=== PATIENT | male | born 1955 | race Caucasian/White ===

== ENCOUNTER 2024-06-21 14:21 | Inpatient (IN) | payer OTHER ==
[2024-06-21] MEDS ORDERED: NICOTINE 14 MG/24 HOURS TOPICAL PATCH TD ONE (14:54)
[2024-06-21] MEDS: NICOTINE 14 MG/24 HOURS TOPICAL PATCH TD STA (15:06)
[2024-06-21 15:12] VITALS: BMI 23.2
[2024-06-21] MEDS ORDERED: ACETAMINOPHEN 325 MG TABLET (FP) PO PRN (15:25)
[2024-06-21] MEDS ORDERED: LORazepam 1 MG TABLET PO PRN (15:25)
[2024-06-21] MEDS ORDERED: MAGNESIUM HYDROX 2400MG/30ML ORAL SUSPENSION 30 ML CUP PO PRN (15:25)
[2024-06-21] MEDS ORDERED: BENZONATATE 200 MG CAPSULE PO PRN (15:25)
[2024-06-21] MEDS ORDERED: LOPERAMIDE HCL 2 MG CAPSULE PO PRN (15:25)
[2024-06-21] MEDS ORDERED: ONDANSETRON *ODT* 4 MG TABLET SL PRN (15:25)
[2024-06-21] MEDS ORDERED: DICYCLOMINE HCL 10 MG CAPSULE PO PRN (15:25)
[2024-06-21] MEDS ORDERED: IBUPROFEN 600 MG TABLET (FP) PO PRN (15:25)
[2024-06-21] MEDS ORDERED: BENZOCAINE/MENTHOL (CHLORASEPTIC ) LOZENGE MM PRN (15:25)
[2024-06-21] MEDS ORDERED: LORazepam 2 MG/ML SDV VIAL ONE (15:25)
[2024-06-21] MEDS ORDERED: IBUPROFEN 400 MG TABLET (FP) PO PRN (15:25)
[2024-06-21] MEDS ORDERED: NALOXONE (NARCAN) HCL 4 MG/0.1 ML SPRAY NS PRN (15:25)
[2024-06-21] MEDS ORDERED: METHOCARBAMOL 500 MG TABLET PO PRN (15:25)
[2024-06-21] MEDS ORDERED: guaiFENesin 600 MG TABLET.ER (FP) PO PRN (15:25)
[2024-06-21] MEDS ORDERED: POLYETHYLENE GLYCOL (HEALTHYLAX) 3350 17 GM PACKET PO PRN (15:25)
[2024-06-21] MEDS ORDERED: BISMUTH SUBSALICYLATE 524 MG/30 ML PO PRN (15:25)
[2024-06-21] MEDS ORDERED: MAG HYDROX/AL HYDROX/SIMETH 30 ML UNIT-DOSE CUP PO PRN (15:25)
[2024-06-21] MEDS: LORazepam 2 MG/ML SDV VIAL IM ONE (15:32)
[2024-06-21] MEDS: PRENATAL VITAMINS W/ FOLIC ACID TABLET (FP) PO SCH (17:05)
[2024-06-21] MEDS: THIAMINE 100 MG TABLET PO SCH (22:15)
[2024-06-21] MEDS: LORazepam 2 MG TABLET PO SCH (22:15)
[2024-06-21] MEDS: MELATONIN 5 MG TABLETS PO SCH (22:16)
[2024-06-22] MEDS: hydrOXYzine PAMOATE 25 MG CAPSULE (FP) PO PRN (06:33)
[2024-06-22] MEDS ORDERED: NICOTINE 14 MG/24 HOURS TOPICAL PATCH TD SCH (10:00)
[2024-06-22] MEDS: NICOTINE 14 MG/24 HOURS TOPICAL PATCH TD SCH (10:17)
[2024-06-22] MEDS: PNEUMOC 20-VAL CONJ-DIP CRM/PF 0.5 ML SYRINGE IM ONE (12:08)
[2024-06-22 13:51] LABS: HEMATOCRIT 39.9 % (35.4-49); HEMOGLOBIN 13.7 GM/dL (11.7-16.9); MCH 31.6 pg (25.7-33.7); MCHC 34.3 g/dl (32.0-35.9); MEAN CELL VOLUME 92.1 fl (80-96); MEAN PLT VOLUME 7.3 fl (7.5-11.1); PLATELET COUNT 118 10^3/uL (134-434); RBC 4.34 M/mm3 (4.00-5.60); RDW 14.2 % (11.9-15.9); WHITE BLOOD COUNT 5.9 K/mm3 (4.0-10.0)
[2024-06-22] MEDS: BISACODYL 5 MG TABLET.DR (FP) PO ONE (15:18)
[2024-06-22 15:32] LABS: CHLORIDE 104 mmol/L (98-107); POTASSIUM 3.4 mmol/L (3.5-5.1); SODIUM 137 mmol/L (136-145)
[2024-06-22 15:34] LABS: ANION GAP 8 mmol/L (4-13); CALCIUM 9.2 mg/dL (8.5-10.1); CO2 26 mmol/L (21-32); GLUCOSE,RANDOM 179 mg/dL (74-106)
[2024-06-22 15:37] LABS: CREATININE 0.9 mg/dL (0.55-1.3); SGOT/AST 25 U/L (15-37); SGPT/ALT 21 U/L (13-61)
[2024-06-22 15:39] LABS: BILIRUBIN,TOTAL 0.6 mg/dL (0.2-1); TOT PROT 6.7 g/dl (6.4-8.2)
[2024-06-22 15:40] LABS: ALK PHOS 92 U/L (45-117)
[2024-06-22] MEDS: METOPROLOL TARTRATE 25 MG TABLET (FP) PO ONE (22:18)
[2024-06-23] MEDS: LORazepam 1 MG TABLET PO SCH (05:36)
[2024-06-23 11:04] VITALS: RESP 18
[2024-06-23] MEDS: POTASSIUM CHLORIDE ORAL LIQUID 20 MEQ/15 ML PO ONE (11:48)
[2024-06-23 13:04] VITALS: BP 123/78; PULSE 89; TEMP 98.4
[2024-06-24] MEDS ORDERED: LORazepam 0.5 MG TABLET PO PRN
[2024-06-24] MEDS ORDERED: LORazepam 0.5 MG TABLET PO SCH (05:00)
[2024-06-25] MEDS ORDERED: LORazepam 0.5 MG TABLET PO ONE (05:00)
== END 2024-06-23 14:26 | disposition left against medical advice (07) | DRG 894 ==
LOC: YASAS 14:21 → Y6N 15:57
PROVIDERS: ADMIT Allergy & Immunology; ATTEND Allergy & Immunology
PROC: HZ2ZZZZ Detoxification Services for Substance Abuse Treatment (ICD-10-PCS; principal; 2024-06-21)
DX: F10.230 Alcohol dependence with withdrawal, uncomplicated (principal); Z59.01 Sheltered homelessness; F17.210 Nicotine dependence, cigarettes, uncomplicated; F10.282 Alcohol dependence with alcohol-induced sleep disorder; F10.24 Alcohol dependence with alcohol-induced mood disorder; F41.9 Anxiety disorder, unspecified; E87.6 Hypokalemia; Z56.0 Unemployment, unspecified
CPT/HCPCS: 36415; 80053; 80305; 80307; 85027; 86780; 86803; 90677; 93005; 93010; G0009